=== PATIENT | male | born 1990 | race Native Hawaiian/Other Pacific Islander ===

== ENCOUNTER 2021-07-13 02:37 | Emergency (ER) | payer OTHER ==
[~2021-07-13] VITALS: Ht 182.9 cm; Wt 88.0 kg
[2021-07-13 02:40] VITALS: BP 128/82; TEMP 99.2
== END 2021-07-13 03:00 | disposition still patient (30) ==
LOC: ED 02:37
DX: F15.10 Other stimulant abuse, uncomplicated (principal); Z53.21 Procedure and treatment not carried out due to patient leaving prior to being seen by health care provider
CPT/HCPCS: 99282